=== PATIENT | female | born 1965 | race Caucasian/White ===

== ENCOUNTER 2017-05-26 13:00 | Emergency (ER) | payer OTHER ==
[2017-05-26 13:12] VITALS: BMI 34.4
[2017-05-26] MEDS ORDERED: DILAUDID INJ IVP ONE (14:53)
[2017-05-26] MEDS ORDERED: ZOFRAN INJ 4 MG VIAL IM ONE (14:54)
--- NOTE | 2017-05-26 14:57 | DR.HEADACH ---
HPI - Time Seen Time seen: 15:00 - Primary Care Physician Primary Care Physician: DR. MONTOYA - HPI Comment HPI Comment: NO FEVER, TRAUMA OR SINUS SYMTOMS. RECENTLY, BP ELEVATED. GIVEN LOPRESSOR. STILL BP ELEVATED TONIGHT. SUB STERNAL CHEST PRESSURE STARTED TODAY. WORSE CURRENTLY. REST OF HISTORY BELOW. - Complaint/Symptoms Chief Complaint Doctors Comments: MIGRAINE HEADACHE, ELEVATED BP. CHEST PAIN FOR FEW HOURS. Chief Complaint:: MIGRANE HEADACHE Pertinent History: Dizziness/Weakness, Headache, Hypertension, Nausea/Vomitting Self Treatment fo Chief Complaint: WAS SEEN IN THE ER IN [place] ON SATURDAY AND RECEIVED DEMEROL AND PHENERGAN AND ONLY GOT SOME RELIEF. HAS TAKEN A TOTAL OF 9 IMITREX WITHOUT RELIEF. - Reviewed Nurses Notes Reviewed: Yes - Source History Provided: Patient - Mode of Arrival Mode of Arrival: Ambulatory - Timing Onset of Chief Complaint: 05/20/17 - Duration Since Onset: Constant Duration: Days - Location Headache Location: Generalized - Quality Quality: Stabbing - Severity Headache Severity: Severe, Worst Headache of Life - Context Headache Onset Circumstances: Spontaneous History of: Hypertension Prior Work Up: CT, Neurologist - Modifying Factors Improves With: Nothing Worsens: Nothing - Associated Signs and Symptoms Associated Symptoms: Nausea, Vomitting, Photophobia Aura: denies: Visual, Sensory, Motor, Mood PMH - PMH Past Medical History: Yes Past Medical History Comment: CANCER- CERVIX AND URINARY, BOWEL OBSTRUCTION X'S 3 WITH COMPLETE RESECTION IN SEP. MEDIPORT IN LEFT CHEST Past Surgical History: Yes Surgical History: Other Past Surgical History Comment: BOWEL RESECTION, MEDIPORT - Family History History of Family Medical Conditions: Yes Family Medical History: Diabetes Mellitus, Cancer Family Medical History Comment: CVA - Social History Lives With: Family Lives Where: Home - infectious screening In the last 2 months have you had wt loss of >10#?: NO Have you had fever, night sweats or hemotysis?: No Have you traveled outside the country in the last 6 months?: No Isolation: Standard ROS - Review of Systems Constitutional: Weakness, Fatigue. negative: Chills, Fever Eyes: Photophobia. negative: Eye Pain, Discharge ENTM: negative: Ear Pain, Nose Discharge, Nose Congestion, Throat Pain Respiratoy: negative: Productive Cough, Non-Productive Cough, Short of Breath, Wheezing, Hemoptysis Cardiovascular: Chest Pain. negative: Edema Gastrointestinal/Abdominal: Nausea, Vomiting Genitourinary: No Symptoms Reported. negative: Dysuria, Frequency, Hematuria Neurological: Headache, Weakness, Dizziness Musculoskeletal: Muscle Pain Integumentary: No Symptoms Reported Hematologic/Lymphatic: No Symptoms Reported Endocrine: No Symptoms Reported All Other Systems: Reviewed and Negative PE - Vital Signs Vitals: Temperature 97.8 F Pulse Rate [Apical] 85 Pulse Rate [Standing] 82 Pulse Rate [Sitting] 85 Pulse Rate [Lying] 76 Pulse Rate 79 Respiratory Rate 20 Blood Pressure [Left Arm] 143/84 Blood Pressure [Standing] 135/79 Blood Pressure [Sitting] 141/80 Blood Pressure [Lying] 169/84 Blood Pressure 163/100 O2 Sat by Pulse Oximetry 100 - General Limitations: No Limitations General Appearance: Alert - Head Head Exam: Normal Inspection - Eyes Eye exam: Normal Appearance, PERRL, EOMI. negative: Scleral Icterus, Conjunctival Injection Eyelids: Normal Inspection: Bilateral Pupils: Regular, Round: Bilateral, Reactive: Bilateral Sclera/Conjunctival: Normal Inspection: Bilateral - ENT ENT Exam: Normal External Ear Exam External Ear Exam: Normal External Inspection TM/Canal Exam: Bilateral Normal Nose Exam: Normal Nose Exam Mouth Exam: Normal Inspection Teeth Exam: Normal Inspection - Neck Neck Exam: Normal Inspection, Trachea Midline - Chest Chest Inspection: Symmetric Chest Wall Rise - Respiratory Respiratory Exam: Normal Lung Sounds Bilat Respiratory Exam: Bilateral Clear to Auscultation - Cardiovascular Cardiovascular Exam: Regular Rate, Normal Rhythm, Normal Heart Sounds - Abdominal Exam Abdominal Exam: Normal Bowel Sounds - Extremities Extremities Exam: Normal Inspection - Back Back Exam: Normal Inspection - Neurologic Neurological Exam: Oriented X3, CN II-XII Intact, Normal Gait, Reflexes Normal. negative: Motor Sensory Deficit - Psychiatric Psychiatric Exam: Normal Affect, Normal Mood - Skin Skin Exam: Erythema MDM - Additional Information Obtained Additional Information Obtained From: Family - Differential Diagnosis Differential Diagnosis: Considerations may include:: Migraine, CVA, Sinusitis, Other (HYPERTENSION) Course - Treatment Treatment: IM PAIN MED IN ED. PAIN AND BP IMPROVED. - Education/Counseling Education/Counseling: Patient, Education Educated On: Treatment, Diagnosis, Needs for Follow Up ROR - Labs Reviewed Laboratory Results Reviewed?: Yes Result Diagrams: 05/26/17 14:50 05/26/17 14:50 Laboratory: WBC 10.0 X10^3/uL (3.6-10.0) 05/26/17 14:50 RBC 5.20 X10^6/uL (3.5-5.4) 05/26/17 14:50 Hgb 13.6 g/dL (12.0-16.0) 05/26/17 14:50 Hct 41.4 % (36.0-47.0) 05/26/17 14:50 MCV 79.7 fL (80.0-100.0) L 05/26/17 14:50 MCH 26.2 pg (27.0-34.0) L 05/26/17 14:50 MCHC 32.9 g/dL (33.0-35.0) L 05/26/17 14:50 RDW 14.8 % (11.6-16.5) 05/26/17 14:50 Plt Count 295 X10^3/uL (150.0-450.0) 05/26/17 14:50 MPV 9.3 fL (7.4-11.0) 05/26/17 14:50 Neut % 78.8 % (42.0-75.0) H 05/26/17 14:50 Lymph % 14.4 % (21.0-51.0) L 05/26/17 14:50 Schleicher % 4.4 % (0.0-13.0) 05/26/17 14:50 Eos % 1.6 % (0.9-2.9) 05/26/17 14:50 Baso % 0.8 % (0.2-1.0) 05/26/17 14:50 Neut # 7.8 x10^3/uL (2.2-4.8) H 05/26/17 14:50 Lymph # 1.4 X10^3/uL (1.3-2.9) 05/26/17 14:50 Schleicher # 0.4 x10^3/uL (0.3-0.8) 05/26/17 14:50 Eos # 0.2 x10^3/uL (0.0-0.2) 05/26/17 14:50 Baso # 0.1 X10^3/uL (0.0-0.1) 05/26/17 14:50 Absolute Nucleated RBC 0.1 /100WBC 05/26/17 14:50 Sodium 141 mmol/L (136-145) 05/26/17 14:50 Corrected Sodium TNP 05/26/17 14:50 Potassium 4.0 mmol/L (3.5-5.1) 05/26/17 14:50 Chloride 104 mmol/L (98-107) 05/26/17 14:50 Carbon Dioxide 30.9 mmol/L (21-32) 05/26/17 14:50 BUN 13 mg/dL (7-18) 05/26/17 14:50 Creatinine 0.94 mg/dL (0.55-1.02) 05/26/17 14:50 Est GFR (MDRD) Af Amer > 60 (>60) 05/26/17 14:50 Est GFR (MDRD) Non-Af > 60 (>60) 05/26/17 14:50 Glucose 93 mg/dL (65-99) 05/26/17 14:50 Calcium 8.3 mg/dL (8.5-10.1) L 05/26/17 14:50 Corrected Calcium 8.9 mg/dL (8.5-10.1) 05/26/17 14:50 Total Bilirubin 0.40 mg/dL (0.2-1.0) 05/26/17 14:50 AST 15 Units/L (15-37) 05/26/17 14:50 ALT 18 Units/L (12-78) 05/26/17 14:50 Alkaline Phosphatase 93 Units/L (46-116) 05/26/17 14:50 Creatine Kinase 74 Units/L (26-192) 05/26/17 14:50 CK-MB (CK-2) < 1.0 ng/mL (0-4.0) 05/26/17 14:50 CK/CKMB % Calc 1.4 % (<4) 05/26/17 14:50 Troponin I < 0.02 ng/mL (0-1.5) 05/26/17 14:50 Total Protein 7.5 g/dL (6.4-8.2) 05/26/17 14:50 Albumin 3.2 g/dL (3.4-5.0) L 05/26/17 14:50 Globulin 4.3 g/dL (2.5-4.5) 05/26/17 14:50 Albumin/Globulin Ratio 0.7 Ratio (1.1-2.1) L 05/26/17 14:50 - XRAY XRAY Interpreted by: Radiologist - Diagnosis Discharge Problem: Migraine Qualifiers: Migraine type: with aura Status migrainosus presence: with status migrainosus Intractability: intractable Qualified Code(s): G43.111 - Migraine with aura, intractable, with status migrainosus Hypertension Qualifiers: Hypertension type: essential hypertension Qualified Code(s): I10 - Essential ( primary) hypertension - Discharge Plan Disposition: 01 HOME, SELF-CARE Condition: Stable - Follow ups/Referrals Follow ups/Referrals: NFD,None [Primary Care Provider] - 3 days - Instructions Instructions: Migraine Headache, [id number], Chest Pain Observation Additional Instructions: RETURN TO ED IF WORSE.
[2017-05-26] MEDS ORDERED: DILAUDID INJ ONE (14:58)
[2017-05-26] MEDS ORDERED: ZOFRAN INJ 4 MG VIAL ONE (14:58)
[2017-05-26 15:08] LABS: BASOPHILS # (AUTO) 0.1 X10^3/uL (0.0-0.1); BASOPHILS % (AUTO) 0.8 % (0.2-1.0); EOSINOPHILS # (AUTO) 0.2 x10^3/uL (0.0-0.2); EOSINOPHILS % (AUTO) 1.6 % (0.9-2.9); HEMATOCRIT 41.4 % (36.0-47.0); HEMOGLOBIN 13.6 g/dL (12.0-16.0); LYMPHOCYTES # (AUTO) 1.4 X10^3/uL (1.3-2.9); LYMPHOCYTES % (AUTO) 14.4 % (21.0-51.0); MEAN CORPUSCULAR HEMOGLOBIN 26.2 pg (27.0-34.0); MEAN CORPUSCULAR HGB CONC 32.9 g/dL (33.0-35.0); MEAN CORPUSCULAR VOLUME 79.7 fL (80.0-100.0); MEAN PLATELET VOLUME 9.3 fL (7.4-11.0); MONOCYTES # (AUTO) 0.4 x10^3/uL (0.3-0.8); MONOCYTES % (AUTO) 4.4 % (0.0-13.0); NEUTROPHILS # (AUTO) 7.8 x10^3/uL (2.2-4.8); NEUTROPHILS % (AUTO) 78.8 % (42.0-75.0); PLATELET COUNT 295 X10^3/uL (150.0-450.0); RED CELL DISTRIBUTION WIDTH 14.8 % (11.6-16.5)
[2017-05-26 15:20] LABS: BLOOD UREA NITROGEN 13 mg/dL (7-18); CALCIUM 8.3 mg/dL (8.5-10.1); CARBON DIOXIDE 30.9 mmol/L (21-32); CHLORIDE 104 mmol/L (98-107); CREATININE 0.94 mg/dL (0.55-1.02); SODIUM 141 mmol/L (136-145); TROPONIN I < 0.02 ng/mL (0-1.5); eGFR BLACK RACES > 60 (>60); eGFR NON BLACK RACES > 60 (>60)
[2017-05-26 15:25] LABS: ALANINE AMINOTRANSFERASE 18 Units/L (12-78); ALBUMIN 3.2 g/dL (3.4-5.0); ALKALINE PHOSPHATASE 93 Units/L (46-116); ASPARTATE AMINO TRANSFERASE 15 Units/L (15-37); COR CA(FOR HYPOALB) 8.9 mg/dL (8.5-10.1); CREATINE KINASE 74 Units/L (26-192); CREATINE KINASE MB < 1.0 ng/mL (0-4.0); TOTAL PROTEIN 7.5 g/dL (6.4-8.2)
--- NOTE | 2017-05-26 15:27 | CT ---
STUDY: CT HEAD WITHOUT CONTRAST HISTORY: Migraine headache. TECHNIQUE: Multiple axial images of the head were obtained from the skull base to the vertex without administration of IV contrast. COMPARISON: None. FINDINGS: The sulci, cisterns and ventricles are age appropriate. There is no evidence of acute terr itorial infarction, hemorrhage, mass, mass effect, or midline shift. There are no abnormal intra-axia l or extra-axial fluid collections. There is no evidence of acute osseous abnormality or significant soft tissue swelling. Visualized par anasal sinuses and mastoid air cells are predominately clear. IMPRESSION: 1. No evidence of acute intracranial abnormality. Reported By:
[2017-05-26 15:28] LABS: CKMB % 1.4 % (<4)
--- NOTE | 2017-05-26 15:49 | RAD ---
HISTORY: Chest pain. Study: Chest one view Comparison: None. Findings: The trachea is midline. The cardiac silhouette is unremarkable. There is a left-sided Port-A-Cath ca theter in place, the tip of which projects over the SVC. The lungs are clear without focal infiltrate or effusion. The bony thorax is unremarkable. IMPRESSION: 1. No acute cardiopulmonary disease. Reported By:
[2017-05-26 16:58] VITALS: BP 169/84
== END 2017-05-26 16:58 | disposition home or self-care (01) ==
LOC: ER 13:19
DX: G43.111 Migraine with aura, intractable, with status migrainosus (principal); I10 Essential (primary) hypertension
CPT/HCPCS: 36415; 70450; 71010; 80053; 82550; 82553; 84484; 85025; 93005; 93010; 96372; 99282; 99283; J1170; J2405